=== PATIENT | male | born 2000 | race Asian ===

== ENCOUNTER 2021-01-05 20:02 | Emergency (ER) | payer OTHER ==
[~2021-01-05] VITALS: Ht 170.2 cm; Wt 68.0 kg
--- NOTE | 2021-01-05 20:10 | NUR ---
Pt came in with c/o weakness, diarrhea, and nasal congestion x3 days. No SOB or labored breathing. Denies CP/pressure. A/O x4, ambulatory.
--- NOTE | 2021-01-05 20:11 | NUR ---
Dr. Pickett at bedside, MSE in progress.
--- NOTE | 2021-01-05 20:25 | NUR ---
Xray at bedside.
[2021-01-05] MEDS ORDERED: ACETAMINOPHEN ES 500 MG TABLET PO ONE (21:00)
[2021-01-05] MEDS ORDERED: ACETAMINOPHEN ES 500 MG TABLET ONE (21:10)
[2021-01-05 21:12] VITALS: BP 122/83
--- NOTE | 2021-01-05 21:12 | NUR ---
Patient discharged to home in stable condition. A/O x4, no SOB or labored breathing, afebrile. Denies any pain/discomfort at this time. Written and verbal after care instructions given. Patient verbalizes understanding of instructions. Stressed follow up or return to ER for worsening s/s. Steady gait.
== END 2021-01-05 21:14 | disposition home or self-care (01) ==
LOC: ER 20:05
DX: B34.9 Viral infection, unspecified (principal); R05 Cough; Z20.822 Contact with and (suspected) exposure to COVID-19
CPT/HCPCS: 71045; A4663; A9150

== ENCOUNTER 2021-01-07 21:53 | Emergency (ER) | payer OTHER ==
[~2021-01-07] VITALS: Ht 170.2 cm; Wt 68.0 kg
[2021-01-07] MEDS ORDERED: OXYC-128 PO (22:18)
--- NOTE | 2021-01-07 22:18 | NUR ---
Patient discharged to home in stable condition. Written and verbal after care instructions given. Patient verbalizes understanding of instructions. Stressed follow up or return to ER for worsening s/s. Ambulated from ER with stable gait. All belongings with patient.
[2021-01-07 22:19] VITALS: BP 128/77
== END 2021-01-07 22:24 | disposition home or self-care (01) ==
LOC: ER 21:54
DX: B34.9 Viral infection, unspecified (principal)
CPT/HCPCS: A4663